=== PATIENT | female | born 1945 | race Caucasian/White ===

== ENCOUNTER → 2023-01-12 | Outpatient (CLI) | payer MEDICARE | END | disposition home or self-care (01) | LOC: SHCH 10:27 | PROVIDERS: ATTEND Internal Medicine Cardiovascular Disease | DX: I08.3 Combined rheumatic disorders of mitral, aortic and tricuspid valves (principal); R01.1 Cardiac murmur, unspecified; E78.5 Hyperlipidemia, unspecified; I11.9 Hypertensive heart disease without heart failure | CPT/HCPCS: 93306 ==

== ENCOUNTER → 2023-12-07 | Outpatient (CLI) | payer MEDICARE | END | disposition home or self-care (01) | LOC: LAB 11:49 | PROVIDERS: ATTEND Family Medicine | DX: I10 Essential (primary) hypertension (principal) | CPT/HCPCS: 93005 ==

== ENCOUNTER → 2024-01-02 | Outpatient (CLI) | payer MEDICARE | END | disposition home or self-care (01) | LOC: SHCH 10:32 | PROVIDERS: ATTEND Internal Medicine Cardiovascular Disease | DX: I35.1 Nonrheumatic aortic (valve) insufficiency (principal) | CPT/HCPCS: 93306 ==

== ENCOUNTER → 2024-02-06 | Outpatient (CLI) | payer MEDICARE | END | disposition home or self-care (01) | LOC: SHCH 09:37 | PROVIDERS: ATTEND Internal Medicine Cardiovascular Disease | DX: I10 Essential (primary) hypertension (principal) | CPT/HCPCS: 93975 ==

== ENCOUNTER → 2024-03-12 | Outpatient (CLI) | payer MEDICARE ==
[2024-03-12 15:51] LABS: CREATININE 0.6 mg/dL (0.5-1.0); POTASSIUM 4.5 mmol/L (3.5-5.1)
== END | disposition home or self-care (01) ==
LOC: LAB 15:01
PROVIDERS: ATTEND Internal Medicine Cardiovascular Disease
DX: R00.2 Palpitations (principal)
CPT/HCPCS: 36415; 80048

== ENCOUNTER → 2024-04-06 | Outpatient (CLI) | payer MEDICARE ==
[~2024-04-06] MED LIST: IOHEXOL 350 MG/ML 100ML INFUS..BTL IV ONE
== END | disposition home or self-care (01) ==
LOC: RAH 08:23
PROVIDERS: ATTEND Internal Medicine Cardiovascular Disease
DX: I70.1 Atherosclerosis of renal artery (principal); M47.815 Spondylosis without myelopathy or radiculopathy, thoracolumbar region; Q27.1 Congenital renal artery stenosis
CPT/HCPCS: 74175; Q9967

== ENCOUNTER 2024-07-20 12:45 | Emergency (ER) | payer MEDICARE ==
[~2024-07-20] VITALS: Ht 162.6 cm; Wt 54.4 kg
--- NOTE | 2024-07-20 12:58 | ERN ---
ED Note History of Present Illness Stated Complaint: HYPERTENSION AND SOB Chief Complaint: Hypertension Time Seen by MD: 12:47 Dictation: PATIENT IS AN 79-YEAR-OLD FEMALE COMING IN TODAY WITH COMPLAINTS OF MILD SHORTNESS A BREATH AND ELEVATED BLOOD PRESSURE FOR SEVERAL DAYS. NO CHEST PAIN NO BACK PAIN NO SOB. SHE STATES SHE HAS BEEN ON MULTIPLE MEDICATIONS FOR HER BLOOD PRESSURE IN HIS TRIED MULTIPLE COMBINATIONS AND ALWAYS HAS SIDE EFFECTS OF DIZZINESS. TODAY SHE TOOK LOSARTAN 50 MG PRIOR TO ARRIVAL. STATES SHE WENT AND SAW HER PRIMARY CARE DOCTOR TODAY WHO ADVISED HER TO GO TO THE EMERGENCY ROOM FOR FURTHER EVALUATION AND TREATMENT. SUPERINTENDENT [employer] HIS DOCTOR ANA Allergies: Coded Allergies: Penicillins (Unverified Allergy, Unknown, 07/20/24) Home Meds Active Scripts Metoprolol Succinate (Metoprolol Succinate) 25 Mg Tab.er.24h, 1 TAB PO DAILY for 30 Days, #30 TAB 0 Refills Prov:FLOR BUI GLOBAL PROJECT MANAGER 07/20/24 Past Medical History Past Medical History: Hypertension Surgical History: Other History: Not Applicable RN Note Reviewed/Agreed w/PFSH: Yes Review of System Dictation CONSTITUTIONAL: NEGATIVE EXCEPT FOR HPI HEAD/FACE: NEGATIVE EXCEPT FOR HPI EENT: NEGATIVE EXCEPT FOR HPI RESPIRATORY: NEGATIVE EXCEPT FOR HPI GASTROINTESTINAL/ABDOMINAL: NEGATIVE EXCEPT FOR HPI GENITOURINARY: NEGATIVE EXCEPT FOR HPI MUSCULOSKELETAL: NEGATIVE EXCEPT FOR HPI INTEGUMENTARY: NEGATIVE EXCEPT FOR HPI NEUROLOGICAL/PSYCH: NEGATIVE EXCEPT FOR HPI HEMATOLOGIC/LYMPHATIC: NEGATIVE EXCEPT FOR HPI ALL SYSTEMS NEGATIVE, EXCEPT NOTED ABOVE. 13 POINT REVIEW OF SYSTEMS ASSESSED AND ALL NEGATIVE EXCEPT FOR ABOVE. Initial Vital Sign VS Vital Signs Date Time Temp Pulse Resp B/P (MAP) Pulse Ox O2 Delivery O2 Flow Rate FiO2 07/20/24 12:47 98.1 97 20 208/94 99 07/20/24 13:22 Room Air* 0 21 Physical Exam Dictation VITAL SIGNS REVIEWED GENERAL APPEARANCE: ALERT, ORIENTED X 3, NO ACUTE DISTRESS, WELL DEVELOPED, NOURISHED. HEAD AND FACE: NON-TRAUMATIC. EYES: PERRL, PINK CONJUNCTIVAS, EYELID NO TRAUMA, ANTERIOR CHAMBER WITH ARCUS SENILIS. EARS: PINNAS INTACT AND NO SIGNS OF TRAUMA OR ERYTHEMA EAR CANALS CLEAR AND NO DISCHARGE TM NO ERYTHEMA NOSE: NO DISCHARGE, NO BLEEDING. OROPHARYNX: MOUTH NORMAL, TONGUE PINK, PHARYNX CLEAR,NO ERYTHEMA, TONSILS NO EXUDATES, NO ABSCESSES NOTED, MUCOUS MEMBRANE MOIST NECK: SUPPLE, NON-TENDER, NO THYROMEGALY, NO MASSES, NO JVD, NO BRUITS BREAST:DEFERRED CHEST:NO TENDERNESS, NO CREPITUS, NO PARADOXICAL MOVEMENT, NO RETRACTIONS LUNGS:CLEAR, WELL-VENTILATED, SYMMETRIC, NO RALES, NO WHEEZING, NO RHONCHI, NO STRIDOR, GOOD BREATH SOUNDS BILATERALLY HEART: REGULAR RATE, REGULAR RHYTHM, NO MURMUR, NO GALLOPS VASCULAR: NO PERIPHERAL EDEMA, ABDOMEN: SOFT, POSITIVE BOWEL SOUNDS, NONDISTENDED, NO GUARDING, NONTENDER, NO REBOUND, NO MASSES NO HEPATOMEGALY, NO SPLENOMEGALY, NO BACH'S SIGN, NO HERNIAS. RECTAL: DEFERRED GENITAL: DEFERRED NEUROLOGICAL: NORMAL SPEECH, MOTOR FUNCTION INTACT, SENSORY FUNCTION INTACT MUSCULOSKELETAL: NECK NONTENDER, FULL RANGE OF MOTION, BACK NONTENDER, FULL RANGE OF MOTION, EXTREMITIES: NONTENDER, FULL RANGE OF MOTION SKIN: COLOR PINK, DRY, NO TURGOR, NO RASH, NO LACERATIONS, NO ABRASIONS, NO CONTUSIONS. LYMPHATIC: DEFERRED Results (Laboratory/Radiology) Laboratory/Radiology Laboratory Tests Test 07/20/24 13:10 07/20/24 13:11 Urine Color COLORLESS (YELLOW) Urine Appearance CLEAR (CLEAR) Urine pH 7.0 (5.0-8.0) Urine Specific [place] 1.004 (1.001-1.031) Urine Protein NEGATIVE mg/dL (NEGATIVE) Urine Glucose (UA) NEGATIVE mg/dL (NEGATIVE) Urine Ketones 10 mg/dL (NEGATIVE) H Urine Occult Blood NEGATIVE (NEGATIVE) Urine Nitrate NEGATIVE (NEGATIVE) Urine Bilirubin NEGATIVE mg/dL (NEGATIVE) Urine Urobilinogen 0.2 mg/dL (0.2-1.0) Urine Leukocyte Esterase NEGATIVE [place]/uL Urine RBC None /HPF (0-1) Urine WBC None /HPF (0-1) Urine Bacteria None /HPF (None Seen) White Blood Count 6.9 K/uL (4.8-10.8) Red Blood Count 4.24 MIL/uL (4.00-5.50) Hemoglobin 13.8 g/dL (12.0-16.0) Hematocrit 38.7 % (36-48) Mean Corpuscular Volume 91.3 fL (79-99) Mean Corpuscular Hemoglobin 32.5 pg (27.0-33.0) Mean Corpuscular Hemoglobin Concent 35.7 g/dL (32.0-36.0) Red Cell Distribution Width 12.6 % (11.0-15.5) Platelet Count 251 K/uL (130-400) Mean Platelet Volume 8.3 fL (7.5-10.5) Immature Granulocyte % (Auto) 0.4 % (0-1) Neutrophils (%) (Auto) 73.0 % (40.0-77.0) Lymphocytes (%) (Auto) 13.7 % (21.0-51.0) L Monocytes (%) (Auto) 11.6 % (3.0-13.0) Eosinophils (%) (Auto) 0.7 % (0.0-8.0) Basophils (%) (Auto) 0.6 % (0.0-5.0) Neutrophils # (Auto) 5.0 K/uL (1.8-7.7) Lymphocytes # (Auto) 0.9 K/uL (1.0-4.8) L Monocytes # (Auto) 0.8 K/uL (0.1-1.0) Eosinophils # (Auto) 0.05 K/uL (0.00-0.70) Basophils # (Auto) 0.04 K/uL (0.00-0.20) Absolute Immature Granulocyte (auto 0.03 K/uL (0-1) Nucleated Red Blood Cells 0.0 % (0.0-0.19) Sodium Level 128 mmol/L (136-145) L Potassium Level 4.1 mmol/L (3.5-5.1) Chloride Level 94 mmol/L (101-111) L Carbon Dioxide Level 25 mmol/L (21-32) Blood Urea Nitrogen 7 mg/dL (7-18) Creatinine 0.6 mg/dL (0.5-1.0) Glomerular Filtration Rate Calc 91 mL/min (>90) Random Glucose 117 mg/dL (70-105) H Total Calcium 9.0 mg/dL (8.5-10.1) Magnesium Level 2.10 mg/dL (1.80-2.40) Troponin I High Sensitivity 10 ng/L (4-50) Lipase 49 U/L (16-77) Labs Reviewed?: Yes EKG Comment: EKG SINUS RHYTHM/HEART RATE 95/OCCASIONAL PACS,/LEFT ATRIAL ENLARGEMENT 1405, 2ND EKG SINUS TACHYCARDIA/HEART RATE 120/LEFT ATRIAL ENLARGEMENT ED Course ED Course Orders Procedure Category Date Status Time Cbc With Differential LAB 07/20/24 Complete 12:55 Chest 1vw RAD 07/20/24 Resulted 12:55 12 Lead Ekg Tracing- EKG 07/20/24 Resulted Technical 12:55 Magnesium LAB 07/20/24 Complete 12:55 Troponin I High LAB 07/20/24 Complete Sensitivity 12:55 Urinalysis Profile LAB 07/20/24 Complete 12:55 Basic Metabolic Panel LAB 07/20/24 Complete 12:55 Hydralazine 20mg Inj PHA 07/20/24 Complete (Apresoline 20mg In 13:30 12 Lead Ekg Tracing- EKG 07/20/24 Resulted Technical 14:03 Metoprolol Tartrate PHA 07/20/24 Complete (Lopressor) 14:30 Urinalysis Profile LAB 07/20/24 Logged 15:03 0.9%Nacl 1000ml (Ns PHA 07/20/24 Complete 1000ml) 15:30 Morphine 2mg Syg PHA 07/20/24 Complete (Morphine 2mg Syg) 15:30 Ondansetron 4mg Inj PHA 07/20/24 Complete (Zofran 4mg Inj) 15:30 Famotidine 20mg Vial PHA 07/20/24 Complete (Pepcid 20mg Vial) 15:30 Lipase LAB 07/20/24 Complete 15:03 Current Medications Medications (Trade) Dose Ordered Sig/Analilia Route PRN Reason Start Time Stop Time Status Last Admin Dose Admin Famotidine (Pepcid 20mg Vial) 20 mg ONCE ONCE IV 07/20/24 15:30 07/20/24 15:31 DC Hydralazine HCl (APRESOLine 20MG INJ) 10 mg ONCE ONCE IV 07/20/24 13:30 07/20/24 13:31 DC 07/20/24 13:38 Metoprolol Tartrate (loprESSOR) 5 mg ONCE ONCE IV 07/20/24 14:30 07/20/24 14:31 DC 07/20/24 14:27 Morphine Sulfate (morPHINE 2MG SYG) 2 mg ONCE ONCE IVP 07/20/24 15:30 07/20/24 15:31 DC Ondansetron HCl (zoFRAN 4MG INJ) 4 mg ONCE ONCE IVP 07/20/24 15:30 07/20/24 15:31 DC Sodium Chloride 1,000 ml @ 0 mls/hr ONCE ONCE IV 07/20/24 15:30 07/20/24 15:31 DC Vital Signs Date Time Temp Pulse Resp B/P (MAP) Pulse Ox O2 Delivery O2 Flow Rate FiO2 07/20/24 15:47 98.8 82 18 165/78 99 Room Air* 0 07/20/24 15:07 88 20 172/82 99 Room Air* 0 07/20/24 14:27 120 197/75 07/20/24 14:17 115 18 197/87 99 Room Air* 0 07/20/24 13:22 98.8 92 20 191/82 99 Room Air* 0 07/20/24 12:47 98.1 97 20 208/94 99 ONE [place] HUNDRED, PATIENT GIVEN HYDRALAZINE 10 MG FOR HYPERTENSION. 3- 4 MINUTES AFTER RECEIVING THE MEDICATIONS IV, SHE BECAME VERY TACHYCARDIC WITH HEART RATE 117-120, STATES SHE FEELS VERY ANXIOUS, DENIES CHEST PAIN BACK PAIN SOB NO NAUSEA VOMITING. WE WILL REPEAT EKG ANTICIPATE ADMISSION TO THE HOSPITAL 1415, PATIENT REVIEWED ALL OF HER MEDICATION RECORDS IN HIS TAKEN METOPROLOL IN THE PAST. WE WILL GIVE METOPROLOL5 MG IV PUSH AND MONITOR FOR CLINICAL EFFECT. HEART RATE REMAINS 118-124. NO CHEST PAIN NO BACK PAIN 15 50 40, PATIENT HAS A BLOOD PRESSURE 1HEART RATE IS 88 WE WILL BE DISCHARGED HOME TO REMAIN ON LOSARTAN 50 MG B.I.D., SHE WILL BE PLACED ON METOPROLOL LOW DOSE IN THE MORNING AND TOLD TO SEE YOUR DOCTOR HEART Score Response (Comments) Value EKG: Repolarization changes 1 Age: > 65yrs (+2) 2 Risk Factors: 1-2 risk factors (+1) 1 Initial Troponin: Normal limit (0) 0 Total 4 Medical Decision Making MDM MDM: DIFFERENTIAL DIAGNOSIS: ACS/AMI/FLUID OVERLOAD/ELECTROLYTE IMBALANCE/DEHYDRATION/PNEUMONIA/BRONCHITIS/UNCONTROLLED HYPERTENSION RATIONALE: TESTS CONSIDERED AND ORDERED SECONDARY TO SHARED DECISION MAKING INCLUDE: RADIOLOGY/LABS/EKG PREVIOUS OUTSIDE RECORDS REVIEWED: OLD ER VISITS. REVIEWED RISK OF COMPLICATION AND/OR MORBIDITY OR MORTALITY OF PATIENT MANAGEMENT: NONE MEDICATIONS-PER MEDICATION RECONCILIATION SEE NURSE'S NOTES NEED FOR HOSPITALIZATION: PATIENT DOES NOT MEET CRITERIA FOR HOSPITALIZATION. NO NEED FOR EMERGENCY MAJOR/MINOR SURGERY: NO THERE ARE NO SOCIAL CONCERNS WITH THIS PATIENT. PRESCRIPTION DRUG MANAGEMENT METOPROLOL PRESCRIPTIONS WILL INCLUDE SYMPTOMATIC CARE PATIENT'S PRIOR EXTERNAL MEDICAL RECORDS FROM OTHER ER VISITS WERE REVIEWED BY ME INDICATED. PRIOR TESTING AND RESULTS FROM PREVIOUS VISITS WERE REVIEWED. PRIOR TESTS WERE TAKEN INTO ACCOUNT WITH MEDICAL DECISION MAKING AND RESOURCE UTILIZATION, INDEPENDENT HISTORIAN/HISTORIANS WERE USED TO OBTAIN COMPLETE MEDICAL HISTORY. I INDEPENDENTLY INTERPRETED THE TEST THAT WERE PERFORMED, RESULTS WERE REVIEWED BY ME AND CONSIDERED FINDINGS ON RADIOLOGY IF ORDERED. MEDICAL MANAGEMENT AND EXAMINATION INTERPRETATION DISCUSSIONS WERE HAD BY ME WITH OTHER QUALIFIED HEALTHCARE PROFESSIONALS INDICATED FOR THE PATIENT'S CARE. DX & DISP Disposition: Discharge Departure Impression: Primary Impression: Accelerated hypertension Condition: Stable Scripts Metoprolol Succinate (Metoprolol Succinate) 25 Mg Tab.er.24h 1 TAB PO DAILY for 30 Days, #30 TAB 0 Refills Prov: FLOR BUI NP 07/20/24 Additional Instructions: FOLLOW-UP WITH PRIMARY CARE PROVIDER IN 1 TO 2 DAYS. TAKE MEDICATIONS DIRECTED HERE IN THE EMERGENCY ROOM. OKAY TO CONTINUE HOME MEDICATIONS UNLESS OTHERWISE DISCUSSED DURING YOUR VISIT IN THE EMERGENCY ROOM TODAY. RETURN TO YOUR NEAREST EMERGENCY ROOM IF SYMPTOMS WORSEN OR IF THERE IS NO IMPROVEMENT. CALL 911 IF YOU NEED IMMEDIATE ASSISTANCE. TAKE TYLENOL OR MOTRIN [id number] NEEDED AND IF NO CONTRAINDICATIONS ARE PRESENT. INCREASE ORAL HYDRATION. A WOUND CULTURE OR URINE CULTURE WAS ORDERED HERE IN THE EMERGENCY ROOM DEPARTMENT PLEASE FOLLOW-UP WITH PRIMARY CARE PROVIDER AND ADVISE THEM TO GET REPEAT PORTS FROM OUR FACILITY. IF YOU HAD ANY GERRY WRAP/SPLINTS THAT WERE APPLIED HERE, PLEASE DO NOT REMOVE THEM UNTIL YOU SEE YOUR PRIMARY CARE OR SPECIALTY. CONTINUE LOSARTAN DIRECTED FROM YOUR DOCTOR. ADD [id number] MG IN THE MORNING. CONTINUE YOUR BLOOD PRESSURE DIARY AND SEE YOUR DOCTOR IN ONE WEEK. Referrals: TRAVIS ALDANA MD (PCP) Time of Disposition: 15:43 I have reviewed the case, and I agree with, Diagnosis and Plan ATTESTATION BY PHYSICIAN I PERFORMED THE SUBSTANTIVE PORTION OF THE VISIT. I HAVE REVIEWED AND PERSONALLY MADE AND APPROVED THE MANAGEMENT PLAN THAT IS DOCUMENTED IN THE NOTE BY MYSELF FOR THE A PP. I ACKNOWLEDGED FOR RESPONSIBILITY FOR THE PATIENT'S MANAGEMENT PLAN. FLOR BUI NP Jul 20, 2024 12:58 URIEL LONDON MD Jul 20, 2024 17:29
[2024-07-20 13:23] LABS: BASOPHILS # (AUTO) 0.04 K/uL (0.00-0.20); BASOPHILS % (AUTO) 0.6 % (0.0-5.0); EOSINOPHILS # (AUTO) 0.05 K/uL (0.00-0.70); EOSINOPHILS % (AUTO) 0.7 % (0.0-8.0); HEMATOCRIT 38.7 % (36-48); IMMATURE GRANULOCYTE ABSOLUTE 0.03 K/uL (0-1); LYMPHOCYTES # (AUTO) 0.9 K/uL (1.0-4.8); LYMPHOCYTES % (AUTO) 13.7 % (21.0-51.0); MEAN CORPUSCULAR HEMOGLOBIN 32.5 pg (27.0-33.0); MEAN CORPUSCULAR HGB CONC 35.7 g/dL (32.0-36.0); MEAN CORPUSCULAR VOLUME 91.3 fL (79-99); MONOCYTES # (AUTO) 0.8 K/uL (0.1-1.0); MONOCYTES % (AUTO) 11.6 % (3.0-13.0); PLATELET COUNT (AUTO) 251 K/uL (130-400); RED BLOOD CELL COUNT(AUTO) 4.24 MIL/uL (4.00-5.50); RED CELL DISTRIBUTION WIDTH 12.6 % (11.0-15.5); WHITE BLOOD COUNT (AUTO) 6.9 K/uL (4.8-10.8)
[2024-07-20 13:28] LABS: CREATININE 0.6 mg/dL (0.5-1.0); MAGNESIUM 2.1 mg/dL (1.80-2.40); POTASSIUM 4.1 mmol/L (3.5-5.1)
--- NOTE | 2024-07-20 13:36 | EKG ---
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
[2024-07-20] MEDS: hydrALAZine 20MG/ML VIAL IV ONE (13:38)
--- NOTE | 2024-07-20 14:11 | EKG ---
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
[2024-07-20 14:20] LABS: APPEARANCE,URINE CLEAR (CLEAR); BILIRUBIN,URINE NEGATIVE (NEGATIVE); COLOR,URINE COLORLESS (YELLOW); GLUCOSE, URINE (UA) NEGATIVE (NEGATIVE); KETONES,URINE 10 mg/dL (NEGATIVE); LEUKOCYTE ESTERASE ,URINE NEGATIVE Leu/uL (NEGATIVE); NITRATE,URINE NEGATIVE (NEGATIVE); OCCULT BLOOD,URINE NEGATIVE (NEGATIVE); PROTEIN,URINE NEGATIVE (NEGATIVE); UROBILINOGEN,URINE 0.2 mg/dL (0.2-1.0)
[2024-07-20] MEDS: metoPROLOL tartRATE 1 MG/ML 5ML VIAL IV ONE (14:27)
[2024-07-20 14:30] LABS: ADD UA MICROSCOPIC YES
--- NOTE | 2024-07-20 15:02 | HMCIMG ---
CHEST 1VW HISTORY: Shortness of breath COMPARISON: None FINDINGS: A frontal projection of the chest was obtained. No acute pulmonary infiltrates is seen. The heart is normal in size. Degenerative changes are seen. Aortic calcifications are seen. IMPRESSION: 1. No acute pulmonary infiltrate is seen.
[2024-07-20] MEDS: ondanSETRON 4MG INJ IVP ONE (15:22)
[2024-07-20] MEDS: FAMOTIDINE 20MG VIAL IV ONE (15:22)
[2024-07-20] MEDS: 0.9%NACL 1000ML 1,000 ML IV ONE (15:22)
[2024-07-20] MEDS: morPHINE 2 MG SYG IVP ONE (15:22)
[2024-07-20] MEDS ORDERED: METO-408 PO (15:43)
[2024-07-20 15:47] VITALS: BP 165/78; PULSE 82; RESP 18; TEMP 98.7; O2SAT 99
== END 2024-07-20 15:54 | disposition home or self-care (01) ==
LOC: EDH 12:45
DX: I10 Essential (primary) hypertension (principal); Z79.899 Other long term (current) drug therapy; Z88.0 Allergy status to penicillin; Z98.890 Other specified postprocedural states
CPT/HCPCS: 99285; 96374; 71045; 96375; 83735; 84484; 80048; 83690; 85025; 81001; 36415; 93005 ×2; J3490; J0360

== ENCOUNTER → 2024-09-06 | Outpatient (CLI) | payer MEDICARE ==
[~2024-09-06] MED LIST changes: +METO-408 PO
--- NOTE | 2024-09-06 11:06 | HMCIMG ---
CT NECK SOFT TISSUE W/WO CONTR HISTORY: Right breast cancer COMPARISON: None TECHNIQUE: Multiple sequential axial images of the soft tissue neck were obtained. Patient was given 100 cc of Omnipaque through intravenous route. FINDINGS: Visualized portion of brain parenchyma within the posterior fossa is within normal limits. Parapharyngeal fat planes are preserved bilaterally. There is right submandibular mass anterior to the right submandibular gland measuring 3 x 3 cm. Parotid glands and left centimeter gland are grossly within normal limits. There are normal size cervical lymph nodes. The airway is patent. Visualized portion of the lung apices are unremarkable. IMPRESSION: 1. There is right submandibular mass anterior to the right submandibular gland measuring [address] was performed with one or more following dose reduction techniques: automated exposure control, adjustment of the mA and kv according to patient's size, or use of a iterative reconstruction technique.
== END | disposition home or self-care (01) ==
LOC: RAH 09:38
PROVIDERS: ATTEND Internal Medicine
DX: C50.211 Malignant neoplasm of upper-inner quadrant of right female breast (principal); R22.1 Localized swelling, mass and lump, neck
CPT/HCPCS: 70492; Q9967

== ENCOUNTER → 2025-06-13 | Outpatient (CLI) | payer MEDICARE ==
[~2025-06-13] MED LIST changes: -IOHEXOL 350 MG/ML 100ML INFUS..BTL IV ONE
--- NOTE | 2025-06-13 15:18 | HMCIMG ---
DIGITAL both breasts DIAGNOSTIC MAMMOGRAM Technique: The digital mammographic examination of both breasts in craniocaudal, mediolateral oblique views along with CAD was obtained. History: This is a 80 years year-old female for diagnostic mammogram.. Patient has history of right breast lumpectomy for malignancy in 2012 with patient underwent chemotherapy and radiation therapy. Patient has sister with family history of breast cancer. Patient has no complaint Reference:Prior mammogram from 04/20/2024 04/19/2023, 04/16/2022, 02/23/2021 are available for comparison.. Breast composition: Breast composition C: The breasts are heterogeneously dense, which may obscure small masses. Finding: The digital mammographic examination of both breasts in craniocaudal and mediolateral oblique view along with CAD demonstrates to be moderately dense. The right breast as well the left breast with lumpectomy with postsurgical changes. There are solitary multiple macrocalcification seen in right breast upper inner quadrant.. There is a faint density on left breast which was compressed and appears to be breast parenchyma. In the inferior aspect of the left breast. There is no evidence of any dendritic mass, cluster microcalcification or architectural distortion. The retromammary fat appears to be normal. IMPRESSION: Unchanged from prior mammography. NO RADIOGRAPHIC EVIDENCE OF MALIGNANT CHANGES. WE WOULD RECOMMEND ANNUAL FOLLOW UP WITH TOMOSYNTHESIS UNLESS OTHERWISE CLINICALLY INDICATED. FINAL ASSESSMENT: ACR: BI-RAD- 2. Benign: Also a negative assessment; finding(s) benign abnormalities. Management: Routine mammography screening. Likelihood of Cancer: Essentially 0% likelihood of malignancy. NOTE: IF A WORK-UP OF THIS PATIENT LEADS TO A BIOPSY, PLEASE FORWARD A COPY OF THE PATHOLOGY REPORT TO OUR OFFICE REQUIRED BY SA EFFECTIVE MAY 29, 1994. A NEGATIVE MAMMOGRAM SHOULD NOT PRECLUDE BIOPSY OF A CLINICALLY PALPABLE SUSPICIOUS MASS, 10% OF BREAST CANCERS ARE MAMMOGRAPHICALLY OCCULT. THIS MAMMOGRAPHY FACILITY IS FULLY ACCREDITED BY THE FOOD AND DRUG ADMINISTRATION (FDA). THANK YOU FOR THIS REFERRAL.
== END | disposition home or self-care (01) ==
LOC: RAH 13:33
PROVIDERS: ATTEND Nurse Practitioner Women's Health
DX: R92.333 Mammographic heterogeneous density, bilateral breasts (principal); R92.1 Mammographic calcification found on diagnostic imaging of breast; Z85.3 Personal history of malignant neoplasm of breast
CPT/HCPCS: 77066

== ENCOUNTER → 2025-07-08 | Outpatient (CLI) | payer MEDICARE ==
--- NOTE | 2025-07-09 01:28 | HMCIMG ---
EXAM: US Abdominal CLINICAL HISTORY: Abdominal ultrasound performed for evaluation of abdominal pain and routine screening. TECHNIQUE: Real-time ultrasound of the abdomen (complete) with image documentation. COMPARISON: None provided. FINDINGS: LIVER: The liver is normal in size, contour, and echotexture, with no focal hepatic lesions identified and no intrahepatic biliary ductal dilatation. GALLBLADDER: The gallbladder is well distended with normal wall thickness. A tiny echogenic focus measuring approximately 2 mm is seen within the lumen, demonstrating posterior acoustic shadowing, suggestive of a small gallstone. There is no pericholecystic fluid, wall thickening, or other sonographic features of acute cholecystitis. COMMON BILE DUCT: The common bile duct is normal in caliber. PANCREAS: Visualized portions of the pancreas appear unremarkable. The distal pancreas is obscured by overlying bowel gas. KIDNEYS: Both kidneys are normal in size, outline, and cortical echotexture with no evidence of hydronephrosis, renal calculus, or focal lesion. SPLEEN: The spleen is normal in size and echotexture. AORTA: Visualized segments of the aorta appear normal. IVC: Visualized segments of the IVC appear normal. URINARY BLADDER: The urinary bladder is well distended with normal wall characteristics and no intraluminal abnormalities. No free fluid is seen in the abdomen or pelvis. IMPRESSION: 1. Tiny cholelithiasis without evidence of cholecystitis or biliary obstruction. /[place]
== END | disposition home or self-care (01) ==
LOC: RAH 07:52
PROVIDERS: ATTEND Family Medicine
DX: K80.20 Calculus of gallbladder without cholecystitis without obstruction (principal); K82.8 Other specified diseases of gallbladder; N32.89 Other specified disorders of bladder; R10.9 Unspecified abdominal pain
CPT/HCPCS: 76700